=== PATIENT | male | born 1985 | race Hispanic/Latino ===

== ENCOUNTER 2022-11-11 21:26 | Emergency (ER) | payer OTHER ==
[~2022-11-11] VITALS: Ht 182.9 cm; Wt 144.2 kg
[2022-11-11 21:29] VITALS: BP 156/96
== END 2022-11-11 23:33 | disposition home or self-care (01) ==
LOC: EDH 21:26
DX: S50.811A Abrasion of right forearm, initial encounter (principal); M79.602 Pain in left arm; V89.2XXA Person injured in unspecified motor-vehicle accident, traffic, initial encounter; Y93.I9 Activity, other involving external motion; Y92.488 Other paved roadways as the place of occurrence of the external cause; Y99.8 Other external cause status
CPT/HCPCS: 70450; 72125; 73090; 73120